=== PATIENT | male | born 1970 | race Caucasian/White ===

== ENCOUNTER → 2020-07-26 | Outpatient (CLI) | payer OTHER ==
[~2020-07-26] MED LIST: LISI10TA2 PO; METF500T PO
--- NOTE | 2020-07-27 09:21 | NUR ---
Notified patient of positive COVID test.
== END ==
LOC: LABNPT 08:16
PROVIDERS: ATTEND Family Medicine
DX: U07.1 COVID-19 (principal); J06.9 Acute upper respiratory infection, unspecified
CPT/HCPCS: 87635

== ENCOUNTER → 2020-08-15 | Outpatient (CLI) | payer OTHER ==
--- NOTE | 2020-08-15 12:38 | Diagnostic Imaging Report ---
Indication: Cough and shortness of air. Time of exam: 10:59 AM No prior studies are available for comparison. The heart size is normal. The pulmonary vascularity is unremarkable. The lungs are clear. No infiltrate, effusion or pneumothorax is detected. Impression: No acute cardiopulmonary process is detected. Dictated by: Dictated on workstation # [id number]
== END ==
LOC: RAD 10:28
PROVIDERS: ATTEND Nurse Practitioner Family
DX: R07.81 Pleurodynia (principal); R05 Cough; R06.02 Shortness of breath
CPT/HCPCS: 71046

== ENCOUNTER → 2020-10-14 | Outpatient (CLI) | payer OTHER | LOC: CARD 13:30 | PROVIDERS: ATTEND Nurse Practitioner Family | DX: I51.7 Cardiomegaly (principal) | CPT/HCPCS: 93306 ==